=== PATIENT | female | born 1950 | race Caucasian/White ===

== ENCOUNTER 2025-01-30 14:20 | Emergency (ER) | payer BC, MEDICARE ==
[~2025-01-30] VITALS: Ht 149.9 cm; Wt 74.0 kg
[2025-01-30 14:26] VITALS: BP 194/53; PULSE 80; TEMP 97.1; O2SAT 95
--- NOTE | 2025-01-30 14:40 | Physician Documentation ---
History of Present Illness ~ Chief Complaint: Shoulder pain Stated Complaint: L SHOULDER/RIB PAIN Time Seen by MD: 14:31 HPI 74-year-old female brought to the emergency department by EMS for evaluation of left shoulder pain and left chest wall pain. Patient has been a long-time smoker greater than 50 years. Smokes somewhere between half a pack to a pack a day. Pain has been present for three weeks. Patient visited local [facility] and reports she was evaluated by the physician yet not re-evaluate and eventually left without being seen/eloped. She has been trialing [id number] medications such has APAP/NSAID for atraumatiic pain x 4 weeks now. Unable to establish her self with a primary care physician in his area due to her insurance. Denies fever, dysuria, cough, dyspnea on exertion and/or shortness a breath or productive cough. Denies rash. Denies prior history of the same. Pain to left shoulder and lateral chest wall is exacerbated with movement. Medication Reconciliation Allergies: Coded Allergies: Penicillins (Verified Allergy, Unknown, 01/30/25) Sulfa (Sulfonamide Antibiotics) (Verified Allergy, Unknown, 01/30/25) barium sulfate (Verified Allergy, Unknown, 01/30/25) codeine (Verified Allergy, Unknown, 01/30/25) metronidazole (Verified Allergy, Unknown, 01/30/25) Scheduled Lidocaine (Lidoderm), 1 PATCH TOP DAILY Scheduled PRN Tramadol HCl (Tramadol HCl), 1 TAB PO Q6H PRN PRN for pain Review of Systems All Other Systems at this time: Reviewed and Negative (See HPI) Musculoskeletal: Reports: see HPI, pain, joint pain; Denies: joint swelling, neck pain Integumentary: Denies: rash Physical Exam Vital Signs: RN Vital Signs have been reviewed: Yes, Temperature: 97.1, Source: Temporal, Heart Rate: 80, Respiratory Rate: 18, BP: 194/53, Pulse Oximetry: 95, Weight: 74.000 Oxygen Flow Rate: 0 General Appearance: alert, mild distress EENT: PERRL/EOMI Neck: normal inspection Respiratory: lungs clear Chest: normal inspection, tender (Left lateral chest wall without subcutaneous air, rash, hyperemia, erythema) Cardiovascular: normal peripheral pulses, regular rate, rhythm Gastrointestinal: non-tender Back: normal inspection; No: no CVA tenderness, no vertebral tenderness Clavicle: normal inspection Shoulder: bone tenderness, limited ROM, pain, soft tissue tenderness; No: dislocation, deformity, ecchymosis Shoulder Decreased range of motion. There is soft tissue swelling to the lateral and posterior shoulder. No contusions, abrasions, erythema or hematomas. Reproducible pain with internal rotation, external rotation abduction and abduction. Grossly neurologically intact radial median ulnar nerve. No rash noted. Drop Arm Test: positive Impingement Test: positive Elbow/Forearm: normal inspection Distal Function: normal pulse Skin: normal color, warm/dry Lymphatic: normal inspection Neurologic: oriented x4 Psychiatric: normal mood/affect Progress Results/Orders Results/Orders Orders - BRSIEIDA KILLIAN Shoulder, Complete (Min 2 Vws) (01/30/25 14:43) Chest,Single View (01/30/25 14:43) Completed Orders - BRISEIDA KILLIAN Shoulder, Complete (Min 2 Vws) (01/30/25 14:43) Chest,Single View (01/30/25 14:43) Oxycodone/Acetaminophen Tablet (Percocet (01/30/25 16:00) Ibuprofen Tablet (Motrin Tablet) (01/30/25 16:00) Lidocaine 5% Patch (Lidoderm 5% Patch) (01/30/25 15:57) Vital Signs 01/30/25 01/30/25 14:26 16:49 Temp 97.1 Pulse 80 Resp 18 16 B/P (MAP) 194/53 Pulse Ox 95 O2 Flow Rate 0 Medical Decision Making Additional information obtaine: other (EMS) Findings Patient is seen and evaluated in triage at time of arrival. Examination history consistent with musculoskeletal pain requiring x-ray imaging of the left shoulder and chest wall with little to no consideration of coronary syndrome. Can not over the Patient to be re-evaluated after diagnostic imaging. Requires no additional abortive pain management at the moment other than Lidoderm patch. Chest x-ray imaging results reviewed by radiologist. Recommendations are for screening chest x-ray to evaluate for a mass. Patient's physical exam correlates with radiological findings of the left shoulder. Patient has declined wanted a CT imaging due to the discomfort of laying down. If advised to for the risks alternatives and benefits she continues to decline. She has been encouraged to follow up with the primary care physician to a line herself with the medical insurance. She has been provided pain management emergency department food topical Lidoderm patch, Motrin 400 mg in the single Oxycodone. She is discharged with prescriptions to her pharmacy. Patient again encouraged to follow up with primary care for further evaluation and investigation of CXR findings as reported by radiologist. Patient has a orthopedist due to a prior foot fracture and we will follow up there for consideration of procedural care and other treatment modalities. Differential Dx:Considerations: Include: AC separation, Adhesive capsulitis, arthritis, Bicipital tendonitis, Calcific tendonitis, Cervical disc disease, Dislocation, Fracture: Humerus, Fracture: Scapula, Hematoma, Impingement syndrome, Myocardial infarction, Rotator cuff injury, Sprain, Subacromial bursitis, other (Zoster, tumor, mass, Pancoast) Departure Disposition: HOME / SELF CARE / HOMELESS Impression: Primary Impression: Shoulder pain Qualified Codes: M25.512 - Pain in left shoulder; G89.29 - Other chronic pain Additional Impressions: Back pain, thoracic Qualified Codes: M54.6 - Pain in thoracic spine; G89.29 - Other chronic pain Pneumonitis Condition: Stable Discharge Instructions: Shoulder Pain, [id number] Additional Instructions: Today you were arrived to the Emergency department by ambulance for evaluation of left shoulder left chest wall pain. You had X-ray imaging of your chest and I have your left shoulder. I have offered you CT imaging of your chest for further evaluation of suspicious findings involving the right lower lung. Please allow herself with a primary care physician for further evaluation and reconsideration of CT imaging. Additionally your x-ray imaging of the his left shoulder he is consistent with advanced arthritis and likely that of impingement syndrome. You received pain management in the emergency department and prescriptions have been sent to your pharmacy. Please follow up with the primary care physician and return to the emergency department as needed. Thank you for visiting [facility] Referrals: NO PRIMARY CARE PROVIDER (PCP) Prescriptions Lidocaine (Lidoderm) 5 % Adh..patch 1 PATCH TOP DAILY for 30 Days, #30 PATCH 0 Refills may wear up to 12 hours Prov: BRISEIDA KILLIAN 01/30/25 Tramadol HCl (Tramadol HCl) 50 Mg Tablet 1 TAB PO Q6H PRN PRN for pain for 7 Days, #28 TAB Prov: BRISEIDA KILLIAN 01/30/25 Education Educated: Patient, Family Educated regarding: diagnosis, treatment, prognosis, need for follow up Signature Scribe Signature: . Attestation: . BRISEIDA KILLIAN [facility] Jan 30, 2025 14:40
--- NOTE | 2025-01-30 14:54 | RADIOLOGY REPORT ---
CHEST RADIOGRAPH Indication: pain x 3 weeks Technique: Single frontal view of the chest was obtained Comparison: None FINDINGS: Lines and Tubes: None Lungs: Right lower lung zone opacity. Blunting of the left costophrenic angle. Patchy opacity of the right lateral upper lung zone and right medial upper lung zone which may represent healing rib fractures No pneumothorax. Cardiomediastinal contours: Heart size is within normal limits with moderate atherosclerotic calcification and uncoiling of the aorta. Bones: No acute osseous abnormality. IMPRESSION: Blunting of the left costophrenic angle which may be from pneumonia/atelectasis. Hazy right lower lung zone opacity which may represent pneumonia/ atelectasis. Patchy opacity over the right lateral upper lung zone and right medial upper lung zone which may represent healing rib fractures. Recommend correlation with history of trauma. CT should be considered for further evaluation to exclude lung masses.
--- NOTE | 2025-01-30 14:56 | RADIOLOGY REPORT ---
CLINICAL INFORMATION: Pain for 3 weeks. TECHNIQUE: 3 views of the left shoulder were obtained. COMPARISON: None FINDINGS: No acute fracture or dislocation. Moderate arthritic changes are seen at the acromioclavicular joint and glenohumeral joint with joint space narrowing and sclerosis. There are scattered soft tissue calcifications, likely dystrophic calcifications. IMPRESSION: 1. No evidence of acute bony abnormality. 2. Arthritic changes as described above.
[2025-01-30] MEDS ORDERED: TRAM50TA2 PO (16:25)
[2025-01-30] MEDS ORDERED: LIDO-52 TOP (16:25)
[2025-01-30 16:49] VITALS: RESP 16
[2025-01-30] MEDS: oxyCODONE/APAP 5-325mg tablet PO ONE (16:49)
[2025-01-30] MEDS: ibuprofen tablet 400 MG TABLET PO ONE (16:49)
== END 2025-01-30 16:59 | disposition home or self-care (01) ==
LOC: ER 14:21
DX: M25.512 Pain in left shoulder (principal); M54.6 Pain in thoracic spine; J18.9 Pneumonia, unspecified organism; F17.210 Nicotine dependence, cigarettes, uncomplicated; G89.29 Other chronic pain; Z88.0 Allergy status to penicillin; Z88.2 Allergy status to sulfonamides; Z88.5 Allergy status to narcotic agent; Z88.1 Allergy status to other antibiotic agents; Z79.899 Other long term (current) drug therapy
CPT/HCPCS: 71045; 73030; 99284